=== PATIENT | female | born 1960 ===

== ENCOUNTER 2016-07-10 22:26 | Emergency (ER) | payer OTHER ==
[~2016-07-10] VITALS: Ht 162.6 cm; Wt 113.6 kg
[~2016-07-10 22:26] MED LIST: ALBU8.5H2 INHALATION; GING250C PO; LORA10CA PO; TURM500C7 PO
[2016-07-10 22:32] VITALS: BP 171/91; PULSE 99; RESP 19; O2SAT 94
[2016-07-11 00:58] VITALS: BP 129/82; PULSE 83; RESP 18; O2SAT 96
[2016-07-11 01:06] LABS: BASOPHILS % (AUTO) 0.3 % (0-3); EOSINOPHILS % (AUTO) 0.1 % (0-5); MONOCYTES % (AUTO) 4.8 % (4-12); Mean Corpuscular Hemoglobin 28.2 pg (27.0-35.0); Mean Corpuscular Volume 85.3 fL (81-100); NEUTROPHILS % (AUTO) 84.1 % (40-74); Platelet Count 245 bil/L (150-400)
[2016-07-11 01:32] LABS: Magnesium 2.2 mg/dL (1.6-2.6)
[2016-07-11] MEDS ORDERED: HYDROmorphone 0.5 mg/0.5 mL iSecure Syringe IVPUSH PRN (02:20)
[2016-07-11] MEDS ORDERED: Ondansetron 2 mg/mL 2 mL Inj IVPUSH PRN (02:20)
--- NOTE | 2016-07-11 02:23 | ED.REPORT ---
HPI-Abd Pain F 40 and Over Date of Service July 11, 2016 ED Provider: Oscar Jackson MD 56 y/o female with a hx of IBS, hyperlipidemia and asthma presents to the ED via EMS complaining of left lower quadrant pain, which radiates to her back, onset 3 hours ago. The pt reports that 4 weeks ago she had diarrhea and near syncope. 2 weeks later, she experienced similar sx including diarrhea, diaphoresis and lightheadedness. She went to [facility] and all the lab and imaging results were normal. The pt states that for the last three days there has been a change in her sx .She is constipated but managed to pass some "small, fuzzy and bloody stool" this morning. Pt also complains of night sweats , headache and nausea, which has been intermittent for the past month. Nursing Notes Stated Complaint: ABDOMINAL PAIN Chief Complaint: General Complaint Nursing Notes Reviewed: Yes Allergies: Coded Allergies: Contrast Media (Unverified Allergy, Mild, Rash,Itching,, 06/09/16) patient stated she was given benadryl at [facility] for prior imaging. verified with [facility] patient does have contrast allergy. She will need to be pre treated for cat scan TAPE (Verified Allergy, Mild, rash, 05/19/15) barium sulfate (Verified Allergy, Mild, FLUSHING, 06/13/16) Pt said she got barium prior to a CT scan and got facial flushing and diarrhea awhile after, ended up in the hospital in [place]. kld naproxen (Verified Adverse Reaction, Intermediate, pedal edema, 05/19/15) codeine (Verified Adverse Reaction, Mild, nausa, 05/19/15) Scheduled Milagro Root (Milagro) 250 Mg Capsule 250 MG PO prn Scheduled PRN Albuterol HFA (Proair HFA) 8.5 Gm Hfa.aer.ad 2 PUFFS INHALATION Q4H PRN PRN For Wheezing Loratadine (Claritin) 10 Mg Capsule 10 MG PO DAILY PRN PRN Allergies Turmeric Root Extract (Turmeric) 500 Mg Capsule 500 MG PO PRN AD General Time Seen by MD: 01:34 Chief Complaint Abdominal pain Hx Obtained From: Patient Arrived By: Ambulance Sudden in Onset?: No Onset Occurred: 3 days ago Symptom Duration: Intermittent Location: : LLQ Quality: Painful Radiation: : Back Severity: Current: Moderate Severity: Maximum: Moderate Recent Healthcare: Recent doctor visit Similar Sx Previous: Yes Past Medical History Past Medical History Sinusitis LE Edema Pyelonephritis Hyperlipidemia SEN Past Surgical History Reports: Hysterectomy Smoking History Former Smoker Social History Alcohol Use: Denies alcohol use Drug Use: Denies drug use Ambulatory Status Independent Review of Systems GI: Reports: Abdominal pain, Constipation, Hematochezia, Nausea, Vomiting Musculoskeletal: Reports: Back pain Complete sys rev & neg: except as marked. Skin: Reports Diaphoresis Neurologic: Reports: Headache, Lightheaded Physical Exam Vital Signs Vital Signs (First) Date Time Temp Pulse Resp B/P Pulse Ox O2 Delivery O2 Flow Rate FiO2 07/10/16 22:32 36.7 99 19 171/91 94 Room Air Initial VS: Reviewed, Vital signs abnormal Head / Eyes: Atraumatic, Normocephalic, PERRL ENT: Mucous membranes moist, Conjunctiva normal, No scleral icterus Neck: Supple, Non-tender, Full range of motion Extremities: Vascular intact, Neuro intact, No swelling, No tenderness Skin: Warm, Dry, No cyanosis Neurologic: Alert, Oriented, Nonfocal General/Constitutional: Awake, Alert, Cooperative, Not toxic appearing Mildly obese. Respiratory / Chest: Atraumatic, Breath sounds NL, Breath sounds = bilat, No respiratory distress, No rales, No rhonchi, No wheezing Cardiovascular: Heart rate NL, Regular rhythm, Heart sounds NL, No gallop, No murmurs, No rubs Abdomen: Atraumatic, Soft Bilateral lower quadrant tenderness, worse on the left side Back: Atraumatic, Full range of motion Interpretation & Diagnostics Lab Results Interpretation Result Diagram: 07/11/16 0055 07/11/16 0055 Test 07/11/16 00:55 07/11/16 01:03 White Blood Count 11.0th/mm3 (3.8-10.1) Red Blood Count 4.90mil/mm3 (3.90-5.20) Hemoglobin 13.8g/dL (12.0-15.6) Hematocrit 41.8% (35.0-46.0) Mean Corpuscular Volume 85.3fL (81-100) Mean Corpuscular Hemoglobin 28.2pg (27.0-35.0) Mean Corpuscular Hemoglobin Concent 33.0% (32.0-37.0) Red Cell Distribution Width 14.0% (12.3-15.4) Platelet Count 245bil/L (150-400) Neutrophils (%) (Auto) 84.1% (40-74) Lymphocytes (%) (Auto) 10.6% (14-46) Monocytes (%) (Auto) 4.8% (4-12) Eosinophils (%) (Auto) 0.1% (0-5) Basophils (%) (Auto) 0.3% (0-3) Sodium Level 140mEq/L (134-144) Potassium Level 4.2mEq/L (3.5-5.2) Chloride Level 102mEq/L (97-108) Carbon Dioxide Level 23mmol/L (18-29) Blood Urea Nitrogen 17mg/dL (6-24) Creatinine 0.83mg/dL (0.57-1.00) Estimat Glomerular Filtration Rate 102mL/min (>59) Glucose Level 127mg/dL (60-99) Calcium Level 8.8mg/dL (8.5-10.1) Magnesium Level 2.2mg/dL (1.6-2.6) Total Bilirubin 0.3mg/dL (0.0-1.2) Aspartate Amino Transf (AST/SGOT) 15U/L (0-50) Alanine Aminotransferase (ALT/SGPT) 17U/L (0-32) Alkaline Phosphatase 108U/L (25-150) Total Protein 7.3g/dL (6.4-8.4) Albumin 4.2g/dL (3.4-5.0) Lipase 52U/L (13-60) Hold Forrest Top Tube Received (Received) Hold Urine Received (Received) X-Ray Abdominal Interpretation Result: Normal. No evidence of small bowel obstruction. Study: 4 view Interpretation / Wet Read by: Wet read ED physician Re-Eval/Medical Decision Med Decision/Clinical Course 56-year-old female with chronic recurring abdominal pain. She is in the midst of GI evaluation and has an appointment scheduled soon. There is no evidence right now of serious or surgical disease. Source of Hx: Old records Re-Evaluation/Progress : Time of Eval: 05:08 Patient Status: Condition improved Re-Evaluation/Progress Note: Rechecked pt. Discussed lab and imaging results and diagnosis. Informed the pt of the plan to discharge. Pt understands and agrees with plan. F/U instructions and RTER warning given. All questions addressed. Counseled Regarding: Diagnosis, Lab results, Need for follow-up, When/why to return to ED Discharge & Departure Primary Impression: Abdominal pain Abdominal location: left lower quadrant Qualified Code: R10.32 - Left lower quadrant pain Disposition: Home Discharge Condition All VS Reviewed: Yes Patient Instructions: Acute Abdominal Pain (ED) Additional Instructions: Labs are normal. Acute abdominal x-rays are normal. The cause of your pain is uncertain but does not appear to be serious. Keep your scheduled appointment with your GI doctor. Return if you have recurrent severe pain. Referrals: Alysha Victoria PA-C (PCP) Scribe Attestation Portions of this note were transcribed by Papo Sanders. I, , personally performed the history, physical exam and medical decision-making;I reviewed and confirmed the accuracy of the information in the transcribed note. Signed by Savi Sharma. 07/11/16 0515 copies to: Alysha Victoria PA-C, Howard L MD July 11, 2016 02:23 Papo Sanders July 11, 2016 03:57
[2016-07-11 04:58] VITALS: BP 147/81; PULSE 84; RESP 16; O2SAT 99
[2016-07-11 05:22] VITALS: BP 147/81; PULSE 84; RESP 16; O2SAT 99
--- NOTE | 2016-07-11 09:12 | DRSVH ---
PROCEDURE: X-RAY ACUTE ABDOMINAL SERIES ([id number]) INDICATIONS: abd pain TECHNIQUE: One view chest and two views of the abdomen were acquired. COMPARISON: None. FINDINGS: Surgical changes and devices: Herniorrhaphy clips present in the lower abdomen and pelvis. Chest: Lungs are clear. Heart size is normal. No pleural effusions. No pneumoperitoneum. Abdomen: Bowel gas pattern is normal. No suspicious calcifications. Visualized solid organ contour s appear normal. Bones: No suspicious bony lesions. IMPRESSION: No acute process seen within the abdomen or chest. Dictated by: Holland MORA Interpreted: Elizabeth Espinoza MD on 07/11/2016 at 9:10 Transcribed by: TATA on 07/11/2016 at 9:11 Approved by: Elizabeth Espinoza M.D. on 07/11/2016 at 17:02
== END 2016-07-11 05:23 | disposition home or self-care (01) ==
LOC: EDUNIT# 22:26 → SED 22:26 → EDBD 22:26 → SED 07-11 05:23
DX: R10.32 Left lower quadrant pain (principal); E78.5 Hyperlipidemia, unspecified; Z90.710 Acquired absence of both cervix and uterus; Z87.891 Personal history of nicotine dependence; Z88.5 Allergy status to narcotic agent; Z88.6 Allergy status to analgesic agent; Z91.041 Radiographic dye allergy status

== ENCOUNTER 2016-08-19 21:12 | Emergency (ER) | payer OTHER ==
[~2016-08-19] VITALS: Ht 152.4 cm; Wt 108.6 kg
[2016-08-19 21:16] VITALS: BP 157/94; PULSE 104; RESP 20; O2SAT 97
--- NOTE | 2016-08-19 21:34 | ED.REPORT ---
HPI-Abd Pain F 40 and Over Date of Service Aug 19, 2016 ED Provider: Rudolph Guerra MD The patient is a 56 year old female with a medical history including pyelonephritis, hypertension, pre-diabetes, GERD, and a recently-diagnosed UTI who presents to the ED via EMS with LLQ abdominal pain onset a couple of days ago. Associated symptoms include left flank pain, urinary frequency, nausea, vomiting, dysuria, rhinorrhea, subjective fever, and vaginal bleeding. The patient denies other symptoms. EMS found the patient with a BP of 136 systolic, a pulse of 103, and otherwise normal vital signs. She began taking nitrofurantoin yesterday for the UTI, with no relief. The patient has had similar symptoms in the past. Nursing Notes Stated Complaint: ABDOMINAL PAIN Chief Complaint: Female Abdominal Pain Nursing Notes Reviewed: Yes Allergies: Coded Allergies: Contrast Media (Unverified Allergy, Mild, Rash,Itching,, 06/09/16) patient stated she was given benadryl at [facility] for prior imaging. verified with [facility] patient does have contrast allergy. She will need to be pre treated for cat scan TAPE (Verified Allergy, Mild, rash, 05/19/15) barium sulfate (Verified Allergy, Mild, FLUSHING, 06/13/16) Pt said she got barium prior to a CT scan and got facial flushing and diarrhea awhile after, ended up in the hospital in [place]. kld naproxen (Verified Adverse Reaction, Intermediate, pedal edema, 05/19/15) codeine (Verified Adverse Reaction, Mild, nausa, 05/19/15) Scheduled Cefuroxime Axetil (Cefuroxime) 500 Mg Tablet 500 MG PO BID Milagro Root (Milagro) 250 Mg Capsule 250 MG PO prn Scheduled PRN Albuterol HFA (Proair HFA) 8.5 Gm Hfa.aer.ad 2 PUFFS INHALATION Q4H PRN PRN For Wheezing Loratadine (Claritin) 10 Mg Capsule 10 MG PO DAILY PRN PRN Allergies Ondansetron ODT (Zofran ODT) 8 Mg Tablet 8 MG PO Q4H PRN PRN For Nausea Turmeric Root Extract (Turmeric) 500 Mg Capsule 500 MG PO PRN AD General Time Seen by MD: 21:33 Chief Complaint Abdominal pain Hx Obtained From: Patient Arrived By: Ambulance Sudden in Onset?: No Onset Occurred: 3 days ago ("A couple of days ago") Symptom Duration: Since onset Location: : Flank left: LLQ Quality: Painful Severity: Current: Moderate Severity: Maximum: Moderate Pertinent Negative: Relieved by nothing Context Related History: Reports: Abdominal surgery Recent Healthcare: No recent doctor visit Similar Sx Previous: Yes Past Medical History Past Medical History Sinusitis LE Edema Pyelonephritis Hyperlipidemia SEN Hypertension Hernia Rectal prolapse IBS Prediabetes GERD Past Surgical History Reports: Hysterectomy Smoking History Former Smoker Social History Alcohol Use: Denies alcohol use Drug Use: Denies drug use Ambulatory Status Independent Review of Systems Constitutional: Reports: Fever (Subjective) Respiratory: Denies: Non-productive cough, Shortness of breath GI: Reports: Abdominal pain (LLQ), Nausea, Vomiting Female: Reports: Dysuria, Flank pain (Left), Urinary frequency, Vaginal bleeding - abnl Complete sys rev & neg: except as marked. Allergy / Immune: Reports: Rhinorrhea Physical Exam Vital Signs Vital Signs (First) Date Time Temp Pulse Resp B/P Pulse Ox O2 Delivery O2 Flow Rate FiO2 08/19/16 21:16 36.4 104 20 157/94 97 Room Air Initial VS: Reviewed Head / Eyes: Atraumatic, Normocephalic ENT: Conjunctiva normal, No scleral icterus Neck: Supple, Full range of motion Extremities: No swelling, No tenderness Skin: Warm, Dry, No cyanosis Neurologic: Alert, Oriented, Nonfocal Psychiatric: Mood/affect normal, Behavior normal, Normal thought content General/Constitutional: Awake, Alert, No acute distress Appearance / Presentation: Positive: Uncomfortable Respiratory / Chest: Breath sounds NL, Breath sounds = bilat, No respiratory distress Cardiovascular: Heart rate NL, Regular rhythm, Heart sounds NL Abdomen: Soft, Non-tender, No distention Back: Full range of motion Flank / Spine / Paraspinal: Positive: Flank tender L Interpretation & Diagnostics URINE TEST: Negative URINE DIPSTICK: Bedside Urine Specific [place] * 1.005 Bedside Urine pH * 7 Bedside Urine Leukocyte Esterase * Negative Bedside Urine Nitrite * Negative Bedside Urine Protein * Negative Bedside Urine Glucose * Normal Bedside Urine Ketones * Negative Bedside Urine Urobilinogen * Normal Bedside Urine Bilirubin * Negative Bedside Urine Occult Blood * Negative Urine to Lab * Yes Lab Results Interpretation Result Diagram: 08/19/16214608/[id number]/[id number] Test 08/19/16 21:47 08/19/16 22:00 White Blood Count 9.7th/mm3 (3.8-10.1) Red Blood Count 4.98mil/mm3 (3.90-5.20) Hemoglobin 14.0g/dL (12.0-15.6) Hematocrit 42.4% (35.0-46.0) Mean Corpuscular Volume 85.1fL (81-100) Mean Corpuscular Hemoglobin 28.1pg (27.0-35.0) Mean Corpuscular Hemoglobin Concent 33.0% (32.0-37.0) Red Cell Distribution Width 13.5% (12.3-15.4) Platelet Count 224bil/L (150-400) Neutrophils (%) (Auto) 88.3% (40-74) Lymphocytes (%) (Auto) 5.1% (14-46) Monocytes (%) (Auto) 6.0% (4-12) Eosinophils (%) (Auto) 0.2% (0-5) Basophils (%) (Auto) 0.2% (0-3) Sodium Level 142mEq/L (134-144) Potassium Level 3.4mEq/L (3.5-5.2) Chloride Level 102mEq/L (97-108) Carbon Dioxide Level 23mmol/L (18-29) Blood Urea Nitrogen 8mg/dL (6-24) Creatinine 0.67mg/dL (0.57-1.00) Estimat Glomerular Filtration Rate 130mL/min (>59) Glucose Level 139mg/dL (60-99) Calcium Level 9.6mg/dL (8.5-10.1) Magnesium Level 1.9mg/dL (1.6-2.6) Total Bilirubin 0.3mg/dL (0.0-1.2) Aspartate Amino Transf (AST/SGOT) 22U/L (0-50) Alanine Aminotransferase (ALT/SGPT) 29U/L (0-32) Alkaline Phosphatase 114U/L (25-150) Total Protein 7.7g/dL (6.4-8.4) Albumin 4.1g/dL (3.4-5.0) Lipase 94U/L (13-60) Hold Forrest Top Tube Received (Received) Urine Color Yellow (YELLOW) Urine Appearance Clear (CLEAR,HAZY) Urine pH 6.5 (5.0-8.0) Urine Specific [place] 1.005 (1.003-1.035) Urine Protein Negativemg/dL (NEG,TRACE) Urine Glucose (UA) Negativemg/dL (NEGATIVE) Urine Ketones Negativemg/dL (NEGATIVE) Urine Occult Blood Negative (NEGATIVE) Urine Nitrite Negative (NEGATIVE) Urine Bilirubin Negative (NEGATIVE) Urine Urobilinogen Normalmg/dL (NORMAL) Urine Leukocyte Esterase Small (NEGATIVE) Urine RBC 0-2/hpf (0-2) Urine WBC 0-5/hpf (0-5) Urine Epithelial Cells Occasional/hpf (NONE-MOD) Urine Crystals None seen (NONE SEEN) Urine Bacteria None/hpf (NONE-FEW) Urine Hyaline Casts None/lpf (NONE) Urine Granular Casts None seen (NONE SEEN) Urine Waxy Casts None seen (NONE SEEN) Urine Red Blood Cell Casts None seen (NONE SEEN) Urine White Blood Cell Casts None seen (NONE SEEN) Urine Mucus None seen (None Seen) Urine Trichomonas None seen (NONE SEEN) Urine Yeast None (NONE SEEN) Urine Culture Reflexed Indicated CT Abd / Pelvis Interpretation CONCLUSION: 1. No evidence of pancreatitis. Bile ducts are slightly prominent but within normal limits status post cholecystectomy. 2. Normal appendix. No free air, bowel obstruction, or mesenteric inflammation. Report transmitted to the ED by radiologist Andrew Christopher M.D. at 08/19/2016 - 11:50:35 PM PDT Study type: Abdominal CT IV contrast Interpretation / Wet Read by: Interpret - Radiologist Re-Eval/Medical Decision Med Decision/Clinical Course 56-year-old presents with UTI symptoms and left flank pain concerning for pyelonephritis. She is been partially treated with nitrofurantoin. Urine is relatively benign in appearance. That finding prompted a CT, which did not show any other pathology. Will assume for the moment that she actually has low-grade pyelonephritis but a benign urine due to the presence of nitrofurantoin. Treated with Rocephin IV and Ceftin to follow. Ten pack of Vicodin given for her discomfort. Follow up with PCP. Source of Hx: Old records Re-Evaluation/Progress #1: Time of Eval: 23:18 Patient Status: Condition improved Re-Evaluation/Progress Note: Discussed with patient lab results and plan for CT scan. She agrees with plan for care and all questions were addressed. Re-Evaluation/Progress #2: Time of Eval: 01:25 Patient Status: Condition improved Re-Evaluation/Progress Note: Discussed with patient CT and lab results, diagnosis, and plan for discharge. Follow-up and return to the ER instructions given. Patient agrees with plan for care and all questions were addressed. Counseled Regarding: Diagnosis, Lab results, Need for follow-up, When/why to return to ED Discharge & Departure Primary Impression: Urinary tract infection Urinary tract infection type: acute cystitis Hematuria presence: without hematuria Qualified Code: N30.00 - Acute cystitis without hematuria Additional Impressions: Abdominal pain Abdominal location: left lower quadrant Qualified Code: R10.32 - Left lower quadrant pain Pyelonephritis Disposition: Home Discharge Condition All VS Reviewed: Yes Condition: Improved Patient Instructions: Urinary Tract Infection in Women (ED) Additional Instructions: Begin Ceftin twice daily. Discontinue the nitrofurantoin/Macrodantin. Drink plenty of clear fluids. Follow-up with your doctor in the office. Omeprazole daily. Your lipase was elevated today. It was only mildly so. This can be trended after 2-3 months to see if it is changing. 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 Sparing use of Vicodin if needed for pain Referrals: Alysha Victoria PA-C (PCP) Hollyibdenis Attestation Portions of this note were transcribed by Lore Kirk. I, Dr. Guerra, personally performed the history, physical exam, and medical decision-making; I reviewed and confirmed the accuracy of the information in the transcribed note. Signed by: Savi Gibson, 08/20/2016, 02:00 copies to: Alysha Victoria PA-C, Christopher W MD Aug 19, 2016 21:34 LORE KIRK Aug 19, 2016 21:48
[2016-08-19 21:52] LABS: BASOPHILS % (AUTO) 0.2 % (0-3); EOSINOPHILS % (AUTO) 0.2 % (0-5); Mean Corpuscular Hemoglobin 28.1 pg (27.0-35.0); Mean Corpuscular Volume 85.1 fL (81-100); NEUTROPHILS % (AUTO) 88.3 % (40-74); Platelet Count 224 bil/L (150-400)
[2016-08-19] MEDS ORDERED: 0.9% Sodium Chloride 1,000 ML IV ONE (21:58)
[2016-08-19] MEDS ORDERED: HYDROcodone-APAP 5-325 mg Tablet PO ONE (22:00)
[2016-08-19] MEDS ORDERED: Ondansetron 2 mg/mL 2 mL Inj IVPUSH ONE (22:00)
[2016-08-19] MEDS ORDERED: cefTRIAXone Inj 2,000 MG in Dextrose 5% Minibag Plus 50 ML IV ONE (22:00)
[2016-08-19 22:31] LABS: APPEARANCE,URINE CLEAR (CLEAR,HAZY); COLOR,URINE YELLOW (YELLOW); OCCULT BLOOD,URINE NEGATIVE (NEGATIVE); PH,URINE 6.5 (5.0-8.0); UROBILINOGEN,URINE NORMAL (NORMAL)
[2016-08-19 22:38] LABS: Magnesium 1.9 mg/dL (1.6-2.6)
[2016-08-19 22:55] VITALS: BP 127/54; PULSE 80; RESP 20
[2016-08-20 00:02] VITALS: BP 108/55; PULSE 77; RESP 18; O2SAT 95
[2016-08-20] MEDS ORDERED: _HYDROcodone/APAP 5-325 mg Tablet PO PRN (01:35)
[2016-08-20] MEDS ORDERED: _Ondansetron ODT 4 mg Tablet PO PRN (01:35)
[2016-08-20] MEDS ORDERED: CEFU500T61 PO (01:38)
[2016-08-20] MEDS ORDERED: ONDA8TAB7 PO (01:38)
[2016-08-20 01:58] VITALS: BP 121/72; PULSE 74; RESP 18; O2SAT 93
--- NOTE | 2016-08-20 09:43 | DRSVH ---
PROCEDURE: CT ABDOMEN AND PELVIS WITH CONTRAST ([id number]) INDICATIONS: back pain, elevated lipase TECHNIQUE: After the administration of intravenous contrast, 5 mm thick sections acquired from the diaphragm to the symphysis. 5 mm coronal and sagittal reformats were acquired. For radiation dose reduction, the following was used: automated exposure control, adjustment of mA and/or kV according to patient siz e. COMPARISON: None. FINDINGS: Image quality: Excellent. ABDOMEN: Lung bases: Lung bases are clear. Heart size is normal. Solid organs: Liver and spleen are normal in size and enhancement. Gallbladder previous cholecystec vivien. Biliary system is non dilated. Pancreas enhances normally. No adrenal nodules. Kidneys demo nstrate normal size and enhancement, without hydronephrosis. Peritoneum and bowel: Bowel loops demonstrate normal wall thickness and caliber. No free fluid or a ir. Normal appendix. Nodes and vessels: No retroperitoneal or mesenteric adenopathy by size criteria. Aorta and inferior vena cava are normal in size. Miscellaneous: No ventral hernias. Radiodense markers from anterior abdominal wall hernia repair . PELVIS: Genitourinary: Bladder wall thickness is normal. Prior hysterectomy. Miscellaneous: No inguinal hernias or adenopathy. Bones: No suspicious bony lesions. No vertebral body compression fractures. IMPRESSION: 1. Cause of pain is not identified. 2. Previous cholecystectomy. Biliary tree and pancreas are considered within normal limits and withou t inflammatory change. Dictated by: Mauro Koehler M.D. on 08/20/2016 at 9:37 this report corresponds to the findings of the preliminary NSR report. Approved by: Mauro Koehler M.D. on 08/20/2016 at 9:41
== END 2016-08-20 02:00 | disposition home or self-care (01) ==
LOC: SED 21:12
DX: N30.00 Acute cystitis without hematuria (principal); N12 Tubulo-interstitial nephritis, not specified as acute or chronic; I10 Essential (primary) hypertension; K21.9 Gastro-esophageal reflux disease without esophagitis; R73.03 Prediabetes; E78.5 Hyperlipidemia, unspecified; Z87.891 Personal history of nicotine dependence; Z88.5 Allergy status to narcotic agent; Z91.041 Radiographic dye allergy status; Z88.8 Allergy status to other drugs, medicaments and biological substances
CPT/HCPCS: 36415; 74177; 80053; 81000; 81025; 83690; 83735; 85025; 87086; 87088; 96361; 96374; 96375; 99285; J0696; J2405; J7030; Q9967

== ENCOUNTER 2016-09-02 21:01 | Emergency (ER) | payer OTHER ==
[~2016-09-02] VITALS: Ht 152.4 cm; Wt 106.8 kg
[~2016-09-02 21:01] MED LIST changes: +CEFU500T61 PO; +ONDA8TAB7 PO
[2016-09-02 21:03] VITALS: BP 152/83; PULSE 95; RESP 16; O2SAT 96
[2016-09-02 21:49] LABS: BASOPHILS % (AUTO) 0.2 % (0-3); EOSINOPHILS % (AUTO) 0.5 % (0-5); Mean Corpuscular Hemoglobin 28.1 pg (27.0-35.0); Mean Corpuscular Volume 84.8 fL (81-100); NEUTROPHILS % (AUTO) 82.7 % (40-74); Platelet Count 213 bil/L (150-400)
[2016-09-02 21:57] LABS: APPEARANCE,URINE CLEAR (CLEAR,HAZY); COLOR,URINE YELLOW (YELLOW); OCCULT BLOOD,URINE NEGATIVE (NEGATIVE); UROBILINOGEN,URINE NORMAL (NORMAL)
--- NOTE | 2016-09-02 22:11 | ED.REPORT ---
HPI-Abd Pain F 40 and Over Date of Service Sep 02, 2016 ED Provider: Jayden Sanchez MD Pt is a prediabetic 56 year old female with a history of hyperlipidemia, HTN, IBS, fatty liver disease, rectal bleeding, and UTI who presents to the ED via EMS complaining of intermittent cramping abdominal pain onset 3 months ago. She c/o associated diarrhea, back pain, hematochezia, bloody stool, headache, nausea , and tremors. Pt reports elevated blood pressure during each episode. Pt denies any other symptoms. Pt states that she had 2 episodes of diarrhea today and took anti-nausea medication with no relief, prompting her to call EMS. Pt reports that she has been seeing Dr. Navarro, her GI doctor, for the past 3 months regarding her symptoms, however presents today due to blood in stool x1 during a dirrheal episode today. Nursing Notes Stated Complaint: ABDOMINAL PAIN Chief Complaint: Female Abdominal Pain Nursing Notes Reviewed: Yes Allergies: Coded Allergies: Contrast Media (Unverified Allergy, Mild, Rash,Itching,, 06/09/16) patient stated she was given benadryl at [facility] for prior imaging. verified with [facility] patient does have contrast allergy. She will need to be pre treated for cat scan TAPE (Verified Allergy, Mild, rash, 05/19/15) barium sulfate (Verified Allergy, Mild, FLUSHING, 06/13/16) Pt said she got barium prior to a CT scan and got facial flushing and diarrhea awhile after, ended up in the hospital in [place]. kld naproxen (Verified Adverse Reaction, Intermediate, pedal edema, 05/19/15) codeine (Verified Adverse Reaction, Mild, nausa, 05/19/15) Scheduled Cefuroxime Axetil (Cefuroxime) 500 Mg Tablet 500 MG PO BID Milagro Root (Milagro) 250 Mg Capsule 250 MG PO prn Scheduled PRN Albuterol HFA (Proair HFA) 8.5 Gm Hfa.aer.ad 2 PUFFS INHALATION Q4H PRN PRN For Wheezing Loratadine (Claritin) 10 Mg Capsule 10 MG PO DAILY PRN PRN Allergies Ondansetron ODT (Zofran ODT) 8 Mg Tablet 8 MG PO Q4H PRN PRN For Nausea Turmeric Root Extract (Turmeric) 500 Mg Capsule 500 MG PO PRN AD General Time Seen by MD: 22:09 Chief Complaint Abdominal pain Hx Obtained From: EMS Arrived By: Ambulance Sudden in Onset?: Yes Onset Occurred: More than a week ago... (3 months) Symptom Duration: Intermittent Location: : Epigastric: LLQ Quality: Cramping, Painful Severity: Current: Moderate Severity: Maximum: Moderate Recent Healthcare: Recent doctor visit Similar Sx Previous: Yes Past Medical History Past Medical History Notes: PCP - Dr. Navarro at [facility] Past Medical History Sinusitis LE Edema Pyelonephritis Hyperlipidemia SEN Hypertension IBS Prediabetes GERD Sleep apnea Fatty liver disease Past Surgical History Rectal prolapse Cholecystectomy Incisional hernias Reports: Hysterectomy Smoking History Former Smoker Social History Alcohol Use: Denies alcohol use Drug Use: Denies drug use Other Social History: Good social support Ambulatory Status Independent Review of Systems Constitutional: Denies: Fever Respiratory: Denies: Non-productive cough GI: Reports: Abdominal pain, Bloody/tarry stool, Hematochezia, Nausea, Denies: Vomiting Musculoskeletal: Reports: Back pain Complete sys rev & neg: except as marked. Neurologic: Reports: Headache, Shaking Physical Exam Physical Exam Notes: morbidly obese NAD Vital Signs Vital Signs (First) Date Time Temp Pulse Resp B/P Pulse Ox O2 Delivery O2 Flow Rate FiO2 09/02/16 21:03 36.8 95 16 152/83 96 Room Air Initial VS: Reviewed Head / Eyes: Atraumatic, Normocephalic Neck: Full range of motion Extremities: Vascular intact, Neuro intact Skin: Warm, Dry Neurologic: Alert, Oriented, Nonfocal Psychiatric: Mood/affect normal, Behavior normal General/Constitutional: Awake, Alert, Cooperative, Not toxic appearing Respiratory / Chest: Atraumatic, Breath sounds NL, Breath sounds = bilat, No respiratory distress Cardiovascular: Heart rate NL, Regular rhythm, Heart sounds NL Abdomen: Atraumatic, Soft, No guarding, No rebound, BS normoactive Tenderness/Guarding/Rebound: Positive: Tender LLQ... (Moderate), Tender epigastric Back: Atraumatic, Full range of motion Interpretation & Diagnostics Lab Results Interpretation Result Diagram: 09/02/16213909/02/162139 Test 09/02/16 21:30 09/02/16 21:40 Urine Color Yellow (YELLOW) Urine Appearance Clear (CLEAR,HAZY) Urine pH 7.0 (5.0-8.0) Urine Specific [place] 1.010 (1.003-1.035) Urine Protein Negativemg/dL (NEG,TRACE) Urine Glucose (UA) Negativemg/dL (NEGATIVE) Urine Ketones Negativemg/dL (NEGATIVE) Urine Occult Blood Negative (NEGATIVE) Urine Nitrite Negative (NEGATIVE) Urine Bilirubin Negative (NEGATIVE) Urine Urobilinogen Normalmg/dL (NORMAL) Urine Leukocyte Esterase Trace (NEGATIVE) Urine RBC 0-2/hpf (0-2) Urine WBC 0-5/hpf (0-5) Urine Epithelial Cells Occasional/hpf (NONE-MOD) Urine Crystals None seen (NONE SEEN) Urine Bacteria None/hpf (NONE-FEW) Urine Hyaline Casts None/lpf (NONE) Urine Granular Casts None seen (NONE SEEN) Urine Waxy Casts None seen (NONE SEEN) Urine Red Blood Cell Casts None seen (NONE SEEN) Urine White Blood Cell Casts None seen (NONE SEEN) Urine Mucus None seen (None Seen) Urine Trichomonas None seen (NONE SEEN) Urine Yeast None (NONE SEEN) Urinalysis Comment None Urine Culture Reflexed Not indicated White Blood Count 11.2th/mm3 (3.8-10.1) Red Blood Count 4.94mil/mm3 (3.90-5.20) Hemoglobin 13.9g/dL (12.0-15.6) Hematocrit 41.9% (35.0-46.0) Mean Corpuscular Volume 84.8fL (81-100) Mean Corpuscular Hemoglobin 28.1pg (27.0-35.0) Mean Corpuscular Hemoglobin Concent 33.2% (32.0-37.0) Red Cell Distribution Width 13.9% (12.3-15.4) Platelet Count 213bil/L (150-400) Neutrophils (%) (Auto) 82.7% (40-74) Lymphocytes (%) (Auto) 9.4% (14-46) Monocytes (%) (Auto) 7.0% (4-12) Eosinophils (%) (Auto) 0.5% (0-5) Basophils (%) (Auto) 0.2% (0-3) Sodium Level 140mEq/L (134-144) Potassium Level 3.6mEq/L (3.5-5.2) Chloride Level 103mEq/L (97-108) Carbon Dioxide Level 21mmol/L (18-29) Blood Urea Nitrogen 7mg/dL (6-24) Creatinine 0.62mg/dL (0.57-1.00) Estimat Glomerular Filtration Rate 143mL/min (>59) Glucose Level 118mg/dL (60-99) Calcium Level 9.3mg/dL (8.5-10.1) Magnesium Level 2.0mg/dL (1.6-2.6) Total Bilirubin 0.3mg/dL (0.0-1.2) Aspartate Amino Transf (AST/SGOT) 22U/L (0-50) Alanine Aminotransferase (ALT/SGPT) 20U/L (0-32) Alkaline Phosphatase 96U/L (25-150) Total Protein 7.5g/dL (6.4-8.4) Albumin 3.8g/dL (3.4-5.0) Lipase 46U/L (13-60) Re-Eval/Medical Decision Med Decision/Clinical Course 56 year-old with IBS type symptoms of nausea, cramping and diarrhea. Has a diagnosis of IBS, has been having symptoms for weeks. Some blood in stool x1 with diarrhea today. Not anemeic, hemodynamically stable. Labs are reassuring. Feeling better with ondansetron and levsin. Source of Hx: Old records Re-Evaluation/Progress : Time of Eval: 23:30 )( Re-Eval Abdomen: Soft, Tenderness Patient Status: Condition improved Re-Evaluation/Progress Note: Pt rechecked. Informed pt of plan for discharge. Pt understands and agrees with plan for discharge. F/U instructions and RTER warnings given. All questions addressed. Counseled Regarding: Diagnosis, Lab results, Need for follow-up, When/why to return to ED Discharge & Departure Primary Impression: Abdominal pain Abdominal location: generalized Qualified Code: R10.84 - Generalized abdominal pain Disposition: Home Discharge Condition All VS Reviewed: Yes Condition: Stable Additional Instructions: Emergency department evaluation today included interview examination and labs as well as review of past records. There does not appear to be an acute medical problem causing symptoms of cramping diarrhea and nausea. Continue with hyoscyamine, this can be taken 3-4 times a day if needed, and he was ondansetron and follow-up with your GI doctor as planned. During the emergency department for fevers if passing large quantities of blood rectally or for uncontrolled vomiting or severe abdominal pain. Referrals: Alysha Victoria PA-C (PCP) Hollyibdenis Attestation Portions of this note were transcribed by Elham Vivar. I, Dr. Sanchez personally performed the history, physical exam and medical decision-making; I reviewed and confirmed the accuracy of the information in the transcribed note. Signed by : Savi Cordon, 09/03/16 and 00:50. copies to: Alysha Victoria PA-C, Donald L MD Sep 02, 2016 22:11 Elham Chavarria Sep 02, 2016 22:31
[2016-09-02 23:52] VITALS: BP 118/47; PULSE 74; O2SAT 94
== END 2016-09-02 23:53 | disposition home or self-care (01) ==
LOC: SED 21:01
DX: R10.84 Generalized abdominal pain (principal); E78.5 Hyperlipidemia, unspecified; I10 Essential (primary) hypertension; K76.0 Fatty (change of) liver, not elsewhere classified; E66.01 Morbid (severe) obesity due to excess calories; K21.9 Gastro-esophageal reflux disease without esophagitis; Z87.440 Personal history of urinary (tract) infections; Z87.19 Personal history of other diseases of the digestive system; Z87.891 Personal history of nicotine dependence; Z90.49 Acquired absence of other specified parts of digestive tract; Z87.09 Personal history of other diseases of the respiratory system; Z90.710 Acquired absence of both cervix and uterus; Z68.42 Body mass index [BMI] 45.0-49.9, adult; Z79.51 Long term (current) use of inhaled steroids; Z88.5 Allergy status to narcotic agent; Z88.8 Allergy status to other drugs, medicaments and biological substances

== ENCOUNTER 2016-09-18 20:56 | Day surgery (SDC) | payer OTHER ==
[~2016-09-18] VITALS: Ht 152.4 cm; Wt 106.8 kg
[2016-09-18 21:09] VITALS: BP 150/56; PULSE 99; O2SAT 100
--- NOTE | 2016-09-18 21:09 | ED.REPORT ---
HPI-General Illness Date of Service Sep 18, 2016 ED Provider: Rudolph Guerra MD The pt is a 56 y/o female w/ a hx of GERD, incisional hernias, and HTN presenting to the ED via EMS due to food impaction. She was eating a spicy sausage soup when it happened but she was still able to drink water. She is also experiencing rhinorrhea, slight constipation, a tingling sensation in her L leg and L side of her back, nausea, vomiting, pain w/ breathing and pain w/ coughing. Denies dysuria, fever, hemoptysis. The nausea has been affecting her for the last 4 or 5 months. The pt also describes having esophageal surgery where a "balloon" was placed in her esophagus and "inflated" roughly a week and a half ago. She was seen here in the ED for abdominal pain 16 days ago. Nursing Notes Stated Complaint: NAUSEA, VOMITING Chief Complaint: Esophageal obstruction Nursing Notes Reviewed: Yes Allergies: Coded Allergies: Contrast Media (Unverified Allergy, Mild, Rash,Itching,, 06/09/16) patient stated she was given benadryl at [facility] for prior imaging. verified with [facility] patient does have contrast allergy. She will need to be pre treated for cat scan TAPE (Verified Allergy, Mild, rash, 05/19/15) barium sulfate (Verified Allergy, Mild, FLUSHING, 06/13/16) Pt said she got barium prior to a CT scan and got facial flushing and diarrhea awhile after, ended up in the hospital in [place]. kld naproxen (Verified Adverse Reaction, Intermediate, pedal edema, 05/19/15) codeine (Verified Adverse Reaction, Mild, nausa, 05/19/15) Scheduled Cefuroxime Axetil (Cefuroxime) 500 Mg Tablet 500 MG PO BID Milagro Root (Milagro) 250 Mg Capsule 250 MG PO prn Scheduled PRN Albuterol HFA (Proair HFA) 8.5 Gm Hfa.aer.ad 2 PUFFS INHALATION Q4H PRN PRN For Wheezing Loratadine (Claritin) 10 Mg Capsule 10 MG PO DAILY PRN PRN Allergies Ondansetron ODT (Zofran ODT) 8 Mg Tablet 8 MG PO Q4H PRN PRN For Nausea Turmeric Root Extract (Turmeric) 500 Mg Capsule 500 MG PO PRN AD General Time Seen by MD: 21:04 Chief Complaint Other (food impaction) Hx Obtained From: Patient Arrived By: Ambulance Sudden in Onset?: Yes Onset Occurred: Just prior to arrival Symptom Duration: Since onset Recent Healthcare: No recent hospitalization, Recent doctor visit Past Medical History Past Medical History Notes: PCP - Dr. Navarro at [facility] Past Medical History Sinusitis LE Edema Pyelonephritis Hyperlipidemia SEN Hypertension IBS Prediabetes GERD Sleep apnea Fatty liver disease UTI Past Surgical History Rectal prolapse Cholecystectomy Incisional hernias Reports: Hysterectomy Smoking History Former Smoker Social History Alcohol Use: Denies alcohol use Drug Use: Denies drug use Other Social History: Good social support Ambulatory Status Independent Review of Systems Tingling in L leg and L side of back; Pain w/ breathing and pain w/ coughing; Denies hemoptysis; Full Review of Systems Constitutional: Denies: Fever GI: Reports: Constipation (mild ), Dysphagia, Nausea, Vomiting, Denies: Hematochezia Female: Denies: Dysuria Allergy / Immune: Reports: Rhinorrhea Complete sys rev & neg: except as marked. Physical Exam Vital Signs Vital Signs Date Time Temp Pulse Resp B/P Pulse Ox O2 Delivery O2 Flow Rate FiO2 09/18/16 22:53 98 24 120/69 98 Room Air 09/18/16 21:09 36.6 99 150/56 100 Room Air Initial VS: Reviewed Head / Eyes: Atraumatic, Normocephalic, PERRL Neck: Supple, Non-tender, Full range of motion Respiratory: Breath sounds normal, Clear to auscultation, No respiratory distress Extremities: Vascular intact, Neuro intact, No swelling, No tenderness Neurologic: Alert, Oriented, Nonfocal Psychiatric: Mood/affect normal, Behavior normal, Normal thought content General/Constitutional: Awake, Alert Appearance / Presentation: Positive: Obese Cardiovascular: Regular rhythm, Heart sounds NL Heart Rate / Rhythm: Positive: Tachycardia Abdomen: Atraumatic, Soft Tenderness/Guarding/Rebound: Positive: Tender epigastric Skin: Color NL, Warm, Dry Color / Condition: Positive: Diaphoresis present Interpretation & Diagnostics Lab Results Interpretation Result Diagram: 09/18/16 2200 09/18/16 2200 Test 09/18/16 22:00 09/18/16 22:47 White Blood Count 10.6th/mm3 (3.8-10.1) Red Blood Count 4.89mil/mm3 (3.90-5.20) Hemoglobin 13.9g/dL (12.0-15.6) Hematocrit 39.7% (35.0-46.0) Mean Corpuscular Volume 81.2fL (81-100) Mean Corpuscular Hemoglobin 28.4pg (27.0-35.0) Mean Corpuscular Hemoglobin Concent 35.0% (32.0-37.0) Red Cell Distribution Width 14.0% (12.3-15.4) Platelet Count 244bil/L (150-400) Neutrophils (%) (Auto) 82.3% (40-74) Lymphocytes (%) (Auto) 10.0% (14-46) Monocytes (%) (Auto) 6.8% (4-12) Eosinophils (%) (Auto) 0.5% (0-5) Basophils (%) (Auto) 0.2% (0-3) Prothrombin Time 10.1sec (8.1-12.5) Prothromb Time International Ratio 0.95ratio Sodium Level 139mEq/L (134-144) Potassium Level 3.4mEq/L (3.5-5.2) Chloride Level 100mEq/L (97-108) Carbon Dioxide Level 20mmol/L (18-29) Blood Urea Nitrogen 6mg/dL (6-24) Creatinine 0.79mg/dL (0.57-1.00) Estimat Glomerular Filtration Rate 108mL/min (>59) Glucose Level 133mg/dL (60-99) Calcium Level 9.4mg/dL (8.5-10.1) Magnesium Level 1.9mg/dL (1.6-2.6) Total Bilirubin 0.4mg/dL (0.0-1.2) Aspartate Amino Transf (AST/SGOT) 24U/L (0-50) Alanine Aminotransferase (ALT/SGPT) 23U/L (0-32) Alkaline Phosphatase 112U/L (25-150) Total Protein 7.7g/dL (6.4-8.4) Albumin 4.0g/dL (3.4-5.0) Lipase 46U/L (13-60) Urine Color Yellow (YELLOW) Urine Appearance Clear (CLEAR,HAZY) Urine pH 7.0 (5.0-8.0) Urine Specific [place] 1.005 (1.003-1.035) Urine Protein Negativemg/dL (NEG,TRACE) Urine Glucose (UA) Negativemg/dL (NEGATIVE) Urine Ketones Negativemg/dL (NEGATIVE) Urine Occult Blood Negative (NEGATIVE) Urine Nitrite Negative (NEGATIVE) Urine Bilirubin Negative (NEGATIVE) Urine Urobilinogen Normalmg/dL (NORMAL) Urine Leukocyte Esterase Trace (NEGATIVE) Urine RBC 0-2/hpf (0-2) Urine WBC 0-5/hpf (0-5) Urine Epithelial Cells Few/hpf (NONE-MOD) Urine Crystals None seen (NONE SEEN) Urine Bacteria Few/hpf (NONE-FEW) Urine Hyaline Casts None/lpf (NONE) Urine Granular Casts None seen (NONE SEEN) Urine Waxy Casts None seen (NONE SEEN) Urine Red Blood Cell Casts None seen (NONE SEEN) Urine White Blood Cell Casts None seen (NONE SEEN) Urine Mucus None seen (None Seen) Urine Trichomonas None seen (NONE SEEN) Urine Yeast None (NONE SEEN) Urinalysis Comment None Urine Culture Reflexed Indicated X-Ray Chest Interpretation Chest Xray Interpretation: Impression: No acute findings View: AP & lat Interpretation / Wet Read by: Wet read ED physician Re-Eval/Medical Decision Med Decision/Clinical Course 56-year-old with known esophageal web in status post balloon dilatation ten days ago, presents with an apparent food impaction. She stated initially she is able to drink water, but is unable report procession of the water to her stomach, and in fact is vomiting water op when she drinks anymore than a small sip at a time. Nitrates and glucagon were unrevealing, and endoscopic team was summoned and arrived promptly to take her to the operating room for upper endoscopy. Transported in stable condition. Source of Hx: Old records Time of Eval: 22:38 Re-Evaluation/Progress Note: Pt rechecked. She reports feeling like the water is stuck in her throat and not feeling a splashing sensation. Time of Eval: 23:00 Re-Evaluation/Progress Note: Pt went for endo w/ Dr. Knight Counseled Regarding: Diagnosis, Lab results, Need for admission Discharge & Departure Primary Impression: Food impaction of esophagus Encounter type: initial encounter Qualified Code: T18.128A - Food in esophagus causing other injury, initial encounter Disposition: ADMITTED TO HOSPITAL ([facility] w/ Dr. Knight ) Discharge Condition All VS Reviewed: Yes Condition: Stable Referrals: Alysha Victoria PA-C (PCP) Scribe Attestation Portions of this note were transcribed by Jarad Cuello. I, Dr. Guerra personally performed the history, physical exam and medical decision-making; I reviewed and confirmed the accuracy of the information in the transcribed note. Signed by : Savi John, 09/18/16 and [id number]. copies to: Alysha Victoria PA-C, Christopher W MD Sep 18, 2016 21:09 Jarad Cuello Sep 18, 2016 21:52
[2016-09-18] MEDS ORDERED: Ondansetron 2 mg/mL 2 mL Inj IVPUSH ONE (21:15)
[2016-09-18] MEDS ORDERED: Glucagon 1 mg/mL Inj IV ONE (21:45)
[2016-09-18 22:35] LABS: BASOPHILS % (AUTO) 0.2 % (0-3); EOSINOPHILS % (AUTO) 0.5 % (0-5); MONOCYTES % (AUTO) 6.8 % (4-12); Mean Corpuscular Hemoglobin 28.4 pg (27.0-35.0); Mean Corpuscular Volume 81.2 fL (81-100); NEUTROPHILS % (AUTO) 82.3 % (40-74); Platelet Count 244 bil/L (150-400)
[2016-09-18 22:39] LABS: INR 0.95 ratio
[2016-09-18 22:45] LABS: Magnesium 1.9 mg/dL (1.6-2.6)
[2016-09-18 22:53] VITALS: BP 120/69; PULSE 98; RESP 24; O2SAT 98
[2016-09-18 22:58] LABS: APPEARANCE,URINE CLEAR (CLEAR,HAZY); COLOR,URINE YELLOW (YELLOW)
[2016-09-18 22:59] LABS: OCCULT BLOOD,URINE NEGATIVE (NEGATIVE); UROBILINOGEN,URINE NORMAL (NORMAL)
[2016-09-18] MEDS ORDERED: Ondansetron 2 mg/mL 2 mL Inj ONE (23:15)
[2016-09-18] MEDS ORDERED: Succinylcholine Chloride 20 mg/mL 5 mL Inj ONE (23:15)
[2016-09-18] MEDS ORDERED: fentaNYL-PF 50 mCg/mL 2 mL Inj ONE (23:15)
[2016-09-18] MEDS ORDERED: Propofol 10,000 mCg/mL 20 mL Inj ONE (23:15)
[2016-09-18] MEDS ORDERED: Rocuronium 10 mg/mL 5 mL Inj ONE (23:15)
[2016-09-18] MEDS ORDERED: MetoCLOpramide 5 mg/mL 2 mL Inj ONE (23:15)
[2016-09-18 23:36] VITALS: BP 122/55; PULSE 107; RESP 22; O2SAT 98
[2016-09-18] MEDS ORDERED: Lactated Ringer's 1,000 ML IV SCH (23:37)
[2016-09-18] MEDS ORDERED: Lactated Ringer's 500 ML IV PRN (23:37)
--- NOTE | 2016-09-18 23:37 | PCM.HPANE ---
Patient Data Surgeon Admitting Provider: Attending Provider:Jesse Knight MD Primary Care Physician:Alysha Victoria PA-C Other Provider:[facility] [facility] Reason for Visit Nausea, Vomiting Ht/WT & BMI Height (Feet): 5 Weight (Kilograms): 106.82 Body Mass Index Allergies Coded Allergies: Contrast Media (Unverified Allergy, Mild, Rash,Itching,, 06/09/16) patient stated she was given benadryl at [facility] for prior imaging. verified with [facility] patient does have contrast allergy. She will need to be pre treated for cat scan TAPE (Verified Allergy, Mild, rash, 05/19/15) barium sulfate (Verified Allergy, Mild, FLUSHING, 06/13/16) Pt said she got barium prior to a CT scan and got facial flushing and diarrhea awhile after, ended up in the hospital in [place]. kld naproxen (Verified Adverse Reaction, Intermediate, pedal edema, 05/19/15) codeine (Verified Adverse Reaction, Mild, nausa, 05/19/15) Past Anesthesia History Anesthesia History: Denies:: Abnormal Airway, Anesthesia Reactions, Difficult Intubation, Fam Anesthesia Reaction, Fam Malignant Hypertherm, Malignant Hyperthermia Diabetes History Hx Diabetes?: Yes (prediabetic) MRSA MRSA: No Medications Hypertension Medication: Yes Home Meds Incl Beta [place]: No Active Scripts Ondansetron ODT (Zofran ODT)8 Mg Tablet8 Mg PO Q4H PRN For Nausea #14 TABLET Prov:Rudolph Guerra MD 08/20/16 Cefuroxime Axetil (Cefuroxime)500 Mg [id number] Mg PO BID #20 TABLET Prov:Rudolph Guerra MD 08/20/16 Reported Medications Milagro Root (Milagro)250 Mg [id number] Mg PO prn 05/19/15 Turmeric Root Extract (Turmeric)500 Mg [id number] Mg PO PRN AD 05/19/15 Loratadine (Claritin)10 Mg [id number] Mg PO DAILY PRN Allergies Ref 0 05/19/15 Albuterol HFA (Proair HFA)8.5 Gm Hfa.aer.ad2 Puffs INHALATION Q4H PRN For Wheezing #1 INHALER 05/19/15 History History of ENT Problems?: No HEENT History: Denies:: Abnormal Airway Cataracts Difficult Intubation Dysphagia Glaucoma Hearing Problem Sinus Problem TMJ Denture Type: None Teeth Condition: Within Normal Limits Hx of Heart Problems?: Yes Cardiovascular History: Positive for:: Hypertension Denies:: Congestive Heart Failure Hx of Respiratory Problem?: Yes Respiratory History: Positive for:: Asthma (mild, rare inhaler) Denies:: Tuberculosis Hx Neurologic Problems?: No Hx of GI Problems?: Yes Gastrointestinal History: Positive for:: Gastroesphageal Reflux (esophageal web with current food impaction) Hx of Problems?: No Hx Musculoskeletal Problems?: Yes Musculoskeletal History: Positive for:: Fibromyalgia Psycho Social History: Positive for:: Anxiety Hx Surgeries?: Yes (hernia repain) Hx Diabetes: Yes (prediabetic) Hx Alcohol Use: NoHx Substance Use: No Smoking Status: Former Smoker Have You Smoked inLast 12 mo: No Stop/Bang SEN Risk Assessment: High Risk, =/>3 Yes Risk Assessment Category Category 1A: Patient has history of documented sleep apnea, and HAS NOT received any narcotic, sedative or anesthesia administration during this stay. Category 1B: Patient has history of documented sleep apnea, and HAS received any narcotic , sedative or anesthesia administration during this stay Category 2: Patient has SUSPECTED Obstructive Sleep Apnea, and HAS received any narcotic , sedative or anesthesia administration during this stay. Category 3: Patient has SUSPECTED Obstructive Sleep Apnea and HAS NOT received narcotic, sedative or anesthesia administration during this stay. Category 4: Outpatient in Procedural Areas with known sleep apnea or who screen positive for High Risk via the STOP/BANG questionnaire. Exam Exam Vital Signs Vital Signs Date Time Temp Pulse Resp B/P Pulse Ox O2 Delivery O2 Flow Rate FiO2 09/18/16 22:53 98 24 120/69 98 Room Air 09/18/16 21:09 36.6 99 150/56 100 Room Air General Appearance: Alert, Oriented X3, Cooperative, No Acute Distress HEENT/AIRWAY: MP 2 Lungs: Clear to Auscultation, Normal Air Movement Heart: Exam Unremarkable, Regular Rate/Rhythm, No Murmurs/Rubs/Gallops Meds/Labs/Diagnostics Admission Meds Current Medications Ondansetron HCl (Zofran Inj) 8 mg ONCE ONCE IVPUSH Last administered on t 22:04; Start 09/18/16 at 21:15; Stop 09/18/16 at 21:16; Status DC Glucagon (Glucagen Inj) 1 mg ONCE ONCE IV Last administered on 09/18/16t 22:10 ; Start 09/18/16 at 21:45; Stop 09/18/16 at 21:46; Status DC Labs Test 09/18/16 22:00 09/18/16 22:47 White Blood Count 10.6th/mm3 (3.8-10.1) Red Blood Count 4.89mil/mm3 (3.90-5.20) Hemoglobin 13.9g/dL (12.0-15.6) Hematocrit 39.7% (35.0-46.0) Mean Corpuscular Volume 81.2fL (81-100) Mean Corpuscular Hemoglobin 28.4pg (27.0-35.0) Mean Corpuscular Hemoglobin Concent 35.0% (32.0-37.0) Red Cell Distribution Width 14.0% (12.3-15.4) Platelet Count 244bil/L (150-400) Neutrophils (%) (Auto) 82.3% (40-74) Lymphocytes (%) (Auto) 10.0% (14-46) Monocytes (%) (Auto) 6.8% (4-12) Eosinophils (%) (Auto) 0.5% (0-5) Basophils (%) (Auto) 0.2% (0-3) Prothrombin Time 10.1sec (8.1-12.5) Prothromb Time International Ratio 0.95ratio Sodium Level 139mEq/L (134-144) Potassium Level 3.4mEq/L (3.5-5.2) Chloride Level 100mEq/L (97-108) Carbon Dioxide Level 20mmol/L (18-29) Blood Urea Nitrogen 6mg/dL (6-24) Creatinine 0.79mg/dL (0.57-1.00) Estimat Glomerular Filtration Rate 108mL/min (>59) Glucose Level 133mg/dL (60-99) Calcium Level 9.4mg/dL (8.5-10.1) Magnesium Level 1.9mg/dL (1.6-2.6) Total Bilirubin 0.4mg/dL (0.0-1.2) Aspartate Amino Transf (AST/SGOT) 24U/L (0-50) Alanine Aminotransferase (ALT/SGPT) 23U/L (0-32) Alkaline Phosphatase 112U/L (25-150) Total Protein 7.7g/dL (6.4-8.4) Albumin 4.0g/dL (3.4-5.0) Lipase 46U/L (13-60) Urine Color Yellow (YELLOW) Urine Appearance Clear (CLEAR,HAZY) Urine pH 7.0 (5.0-8.0) Urine Specific [place] 1.005 (1.003-1.035) Urine Protein Negativemg/dL (NEG,TRACE) Urine Glucose (UA) Negativemg/dL (NEGATIVE) Urine Ketones Negativemg/dL (NEGATIVE) Urine Occult Blood Negative (NEGATIVE) Urine Nitrite Negative (NEGATIVE) Urine Bilirubin Negative (NEGATIVE) Urine Urobilinogen Normalmg/dL (NORMAL) Urine Leukocyte Esterase Trace (NEGATIVE) Urine RBC 0-2/hpf (0-2) Urine WBC 0-5/hpf (0-5) Urine Epithelial Cells Few/hpf (NONE-MOD) Urine Crystals None seen (NONE SEEN) Urine Bacteria Few/hpf (NONE-FEW) Urine Hyaline Casts None/lpf (NONE) Urine Granular Casts None seen (NONE SEEN) Urine Waxy Casts None seen (NONE SEEN) Urine Red Blood Cell Casts None seen (NONE SEEN) Urine White Blood Cell Casts None seen (NONE SEEN) Urine Mucus None seen (None Seen) Urine Trichomonas None seen (NONE SEEN) Urine Yeast None (NONE SEEN) Urinalysis Comment None Urine Culture Reflexed Indicated Plan Impression Patient chart reviewed, patient interviewed and anesthestic plan with risks, benefits, and alternatives discussed, and informed consent obtained. NPO per Anesth. Guidelines: Yes ASA Physical Status: ASA3 Severe Disease Anesthetic Plan: GA Bene/Risks/Altern/Consents: Yes HP Complete Prior to Induction: Yes Pawel Ocampo MD Sep 18, 2016 23:37
[2016-09-18] MEDS ORDERED: EPHEDrine Sulfate 50 mg/mL Inj IVPUSH PRN (23:40)
[2016-09-18] MEDS ORDERED: Labetalol 5 mg/mL 4 mL Inj IV PRN (23:40)
[2016-09-18] MEDS ORDERED: fentaNYL-PF 50 mCg/mL 2 mL Inj IVPUSH PRN (23:40)
[2016-09-18] MEDS ORDERED: HYDROmorphone 1 mg/mL Inj IVPUSH PRN (23:40)
[2016-09-18] MEDS ORDERED: Ondansetron 2 mg/mL 2 mL Inj IVPUSH PRN (23:40)
[2016-09-18] MEDS ORDERED: MetoCLOpramide 5 mg/mL 2 mL Inj IVPUSH PRN (23:40)
[2016-09-18] MEDS ORDERED: Phenylephrine 10,000 mCg/mL Inj IVPUSH PRN (23:40)
[2016-09-18] MEDS ORDERED: Atropine 0.4 mg/mL Inj IVPUSH PRN (23:40)
[2016-09-18 23:48] VITALS: BP 122/55; PULSE 107; RESP 22; O2SAT 98
--- NOTE | 2016-09-19 00:30 | PCM.ENDEGD ---
EGD Date of Service: Sep 19, 2016 Physician Jesse Knight MD Indication for Procedure Food impaction Post Procedure Dx & Findings: Successful food disimpaction Procedure Esophagogastroduodenoscopy PROCEDURE IN DETAIL: The patient was placed in left lateral decubitus position. Bite block was placed. Scope lubricated, placed in posterior pharynx, passed through the cricopharyngeus and esophagus, slowly advanced. As we advanced into his esophagus, patient did not have any fluid material throughout the esophagus. As soon as we entered the stomach, there was a column of long material in the stomach. Further distally, there is disorganized collection of food material. Approximately there was a very organized long column of food which the width was the size of the esophagus. But the esophagus itself was cleared. Stomach was decompressed and procedure was stopped due to risk of regurgitation and possible aspiration despite being intubated. Impression Food impaction resolved. It appears that she probably had a long column of fluid in the esophagus causing her symptoms. And when she was given anesthesia , the esophageal spasm resolved and the esophagus relaxed. Food afterwards probably slipped into the stomach. Recommendation For liquid diet for 3 days and soft diet. 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 Prilosec 20 mg once a day. Presedation Assessment Risks and Benefits Informed consent was obtained from the patient after all risks and benefits including but not limited to drug reaction, infection, pain, bleeding, perforation, as well as alternatives were discussed. Patient monitoring Continuous pulse oximetry, cardiac monitoring, blood pressure monitoring, IV access, and oxygen at 2L per nasal cannula. Complications There were no periprocedural complications identified. Post Procedure Plan Post Procedure Recommendations 1. Restrict activities today. 2. Resume normal activities in the morning. 3. Resume medications. 4. GERD behavioral modification: - Avoid fatty, acidic, spicy, large meals - Do not lie down after meals - Do not eat or drink anything for at least 2 1/2 hours before going to bed at night - Discontinue tobacco and alcohol - Decrease or avoid caffeine - Avoid chocolate and mints - Decrease weight - Avoid aspirin and non steroidal anti-inflammatory agents (NSAID) such as Aleve, Advil, Mobic, Naproxen, Ibuprofen, etc 5. Add proton pump inhibitor. Take 30 minutes before 1st meal of the day. 6. Patient informed of normal post procedure side effects as bloating, drowsiness, blood streaking in the stool 7. If gastric biopsy reveal H.pylori, continue with appropriate treatment 8. If small bowel biopsy reveals celiac, continue with appropriate treatment 9. Please don't hesitate to call me with any questions Jesse Knight MD Sep 19, 2016 00:30
--- NOTE | 2016-09-19 00:34 | PCM.ANEP1 ---
Post Anesthesia PACU Phase 1 Assessment Vital Signs VSS; see RN notes for post-procedure values. Vital Signs Date Time Temp Pulse Resp B/P Pulse Ox O2 Delivery O2 Flow Rate FiO2 09/18/16 23:48 36.6 107 22 122/55 98 Room Air 09/18/16 23:36 107 22 122/55 98 Room Air 09/18/16 22:53 98 24 120/69 98 Room Air 09/18/16 21:09 36.6 99 150/56 100 Room Air Anesthetic Administered: GA Level of Alertness: Awake, talking HEIN's with Equal Strength: Yes Pain: No Nausea or Vomiting: No CV Function & Hydration Stable: Yes Airway Device: Endotrachial Tube Oxygen Delivery: Simple Mask Lungs: Clear to Auscultation, Normal Air Movement PACU Phase 2 Assessment Complications: No Follow up Care: N/A (SEN protocol) Patient Instructions Provided: N/A Pawel Ocampo MD Sep 19, 2016 00:34
--- NOTE | 2016-09-19 02:40 | NUR ---
Activity/Discharge Pt arrived on unit at 0115 via stretcher with Quin DELGADO. Pt mom Gosia in room. Pt awake, no pain. Pt states throat feels scratchy. VS 116/75 BP, 89HR, 97% on RA, and 18 respirations. Pt did well with ice chips and water. Pt teaching done and pt signed discharge paperwork. IV Dc'd intact. Pt discharged via wheelchair to [facility] in ED.
--- NOTE | 2016-09-19 09:46 | DRSVH ---
PROCEDURE: X-RAY CHEST, TWO VIEWS ([id number]) INDICATIONS: upper abdo pain TECHNIQUE: 2 views of the chest were acquired. COMPARISON: 07/11/2016 FINDINGS: Surgical changes and devices: Surgical clips right upper quadrant. Lungs and pleura: No pleural effusions or pneumothorax. Lungs are clear. Mediastinum: Mediastinal contours are normal. Heart size is normal. Bones and chest wall: No suspicious bony abnormalities. Soft tissues appear unremarkable. IMPRESSION: No acute cardiopulmonary abnormality. Dictated by: Stuart Sahni M.D. on 09/19/2016 at 9:43 Approved by: Stuart Sahni M.D. on 09/19/2016 at 9:44
== END 2016-09-18 23:59 | disposition home or self-care (01) ==
LOC: EDBD 20:56 → SED 20:56 → EDUNIT# 20:56 → END 23:14
PROVIDERS: ATTEND Internal Medicine
DX: T18.128A Food in esophagus causing other injury, initial encounter (principal); K21.9 Gastro-esophageal reflux disease without esophagitis; I10 Essential (primary) hypertension; K59.00 Constipation, unspecified; E78.5 Hyperlipidemia, unspecified; G47.33 Obstructive sleep apnea (adult) (pediatric); K58.9 Irritable bowel syndrome, unspecified; R73.03 Prediabetes; K76.0 Fatty (change of) liver, not elsewhere classified; Z79.51 Long term (current) use of inhaled steroids
CPT/HCPCS: 36415; 43235; 71020; 80053; 81000; 83690; 83735; 85025; 85610; 87086; 87088; 93005; 96374; 96375; 99285; J0330; J1610; J2250; J2405; J2765; J3010

== ENCOUNTER 2016-10-08 18:23 | Emergency (ER) | payer OTHER ==
[~2016-10-08] VITALS: Ht 152.4 cm; Wt 105.5 kg
[2016-10-08 18:27] VITALS: BP 142/81; PULSE 102; RESP 20; O2SAT 95
--- NOTE | 2016-10-08 18:40 | ED.REPORT ---
HPI-General Illness Date of Service Oct 08, 2016 ED Provider: Jayden Sanchez MD Pt is 56 year old female with a history of IBS, HTN, GERD, and hyperlipidemia who presents to the ED complaining of throat pain onset this morning. She c/o associated nausea, abdominal pain (burning sensation), elevated blood pressure, chest pain, shaking, and tingling in her hands and arms bilaterally. The pt reports that it feels like she has food stuck in her throat, and that she has been having heart burn. Pt took Zofran at 17:00 today prior to her arrival. She has not tried drinking water since the onset of her symptoms. Nursing Notes Stated Complaint: FOOD STUCK Chief Complaint: Chest Pain-Non Cardiac Nature Nursing Notes Reviewed: Yes Allergies: Coded Allergies: Contrast Media (Unverified Allergy, Mild, Rash,Itching,, 10/08/16) patient stated she was given benadryl at [facility] for prior imaging. verified with [facility] patient does have contrast allergy. She will need to be pre treated for cat scan TAPE (Verified Allergy, Mild, rash, 10/08/16) barium sulfate (Verified Allergy, Mild, FLUSHING, 10/08/16) Pt said she got barium prior to a CT scan and got facial flushing and diarrhea awhile after, ended up in the hospital in [place]. kld naproxen (Verified Adverse Reaction, Intermediate, pedal edema, 10/08/16) codeine (Verified Adverse Reaction, Mild, nausa, 10/08/16) Scheduled Cefuroxime Axetil (Cefuroxime) 500 Mg Tablet 500 MG PO BID Milagro Root (Milagro) 250 Mg Capsule 250 MG PO prn Scheduled PRN Albuterol HFA (Proair HFA) 8.5 Gm Hfa.aer.ad 2 PUFFS INHALATION Q4H PRN PRN For Wheezing Loratadine (Claritin) 10 Mg Capsule 10 MG PO DAILY PRN PRN Allergies Ondansetron ODT (Zofran ODT) 8 Mg Tablet 8 MG PO Q4H PRN PRN For Nausea Turmeric Root Extract (Turmeric) 500 Mg Capsule 500 MG PO PRN AD General Time Seen by MD: 18:40 Chief Complaint Other (Throat pain) Hx Obtained From: Patient Arrived By: Walk-in Sudden in Onset?: No Onset Occurred: 5 - 8 hours ago Symptom Duration: Since onset Location: : Abdomen: Chest Quality: Burning Severity: Current: Moderate Severity: Maximum: Moderate Recent Healthcare: No recent doctor visit, No recent hospitalization Similar Sx Previous: Yes Past Medical History Past Medical History Notes: PCP - Dr. Navarro at [facility] Past Medical History Sinusitis LE Edema Pyelonephritis SEN IBS Prediabetes Sleep apnea Fatty liver disease UTI Reports: GERD, Hyperlipidemia, Hypertension Past Surgical History Rectal prolapse Cholecystectomy Incisional hernias Reports: Hysterectomy Smoking History Former Smoker Social History Alcohol Use: Denies alcohol use Drug Use: Denies drug use Other Social History: Good social support Ambulatory Status Independent Review of Systems Full Review of Systems Ears / Nose / Throat: Reports: Throat pain Respiratory: Denies: Non-productive cough, Shortness of breath Cardiovascular: Reports: Chest pain GI: Reports: Abdominal pain (Burning sensation), Nausea Neurologic: Reports: Shaking Physical Exam Vital Signs Vital Signs Date Time Temp Pulse Resp B/P Pulse Ox O2 Delivery O2 Flow Rate FiO2 10/08/16 22:02 36.7 96 16 133/57 92 Room Air 10/08/16 19:15 92 16 145/62 98 Room Air 10/08/16 18:27 36.6 102 20 142/81 95 Room Air Initial VS: Reviewed Head / Eyes: Atraumatic, Normocephalic Neck: Supple, Full range of motion Respiratory: Breath sounds normal, Clear to auscultation, No respiratory distress Cardiovascular: Regular rate & rhythm, Heart sounds normal, Intact distal pulses Extremities: Vascular intact, Neuro intact Skin: Warm, Dry, No cyanosis Neurologic: Alert, Oriented, Nonfocal Psychiatric: Mood/affect normal, Behavior normal General/Constitutional: Awake, Alert Abdomen: Soft, Non-tender, BS normoactive Interpretation & Diagnostics Lab Results Interpretation Test 10/08/16 18:40 10/08/16 19:00 Urine Color Yellow (YELLOW) Urine Appearance Clear (CLEAR,HAZY) Urine pH 8.0 (5.0-8.0) Urine Specific [place] 1.015 (1.003-1.035) Urine Protein Negativemg/dL (NEG,TRACE) Urine Glucose (UA) Negativemg/dL (NEGATIVE) Urine Ketones 15mg/dL (NEGATIVE) Urine Occult Blood Negative (NEGATIVE) Urine Nitrite Negative (NEGATIVE) Urine Bilirubin Negative (NEGATIVE) Urine Urobilinogen Normalmg/dL (NORMAL) Urine Leukocyte Esterase Negative (NEGATIVE) Urine RBC 0-2/hpf (0-2) Urine WBC 0-5/hpf (0-5) Urine Epithelial Cells Few/hpf (NONE-MOD) Urine Crystals None seen (NONE SEEN) Urine Bacteria None/hpf (NONE-FEW) Urine Hyaline Casts None/lpf (NONE) Urine Granular Casts None seen (NONE SEEN) Urine Waxy Casts None seen (NONE SEEN) Urine Red Blood Cell Casts None seen (NONE SEEN) Urine White Blood Cell Casts None seen (NONE SEEN) Urine Mucus None seen (None Seen) Urine Trichomonas None seen (NONE SEEN) Urine Yeast None (NONE SEEN) Urinalysis Comment None Urine Culture Reflexed Not indicated Hold Urine Received (Received) Troponin T < 0.010ug/L (0.0-0.011) ECG Interpretation ECG Interpretation: Sinus rhythm with a rate of 98. Low voltage, precordial leads. No acute changes. Time: 18:54 Interpreted by: ED physician Re-Eval/Medical Decision Med Decision/Clinical Course Swallowing liquids without difficulty. Still has some reflux. Note that she had eosp food impaction on last visit, tihs presentation seems less impressivie. Cilinically does not have esoph impaction Source of Hx: Old records Time of Eval: 20:32 Re-Evaluation/Progress Note: Pt rechecked. Pt reports that her abominal pain is now radiating to her lower abdomen. She states she takes Carafate 2x daily and Protonix at the same time 1 hour before she eats. Time of Eval: 21:29 Re-Evaluation/Progress Note: Pt rechecked. Informed pt of plan for discharge. Pt understands and agrees with plan for discharge. F/U instructions and RTER warnings given. All questions addressed. Counseled Regarding: Diagnosis, Lab results, Need for follow-up, When/why to return to ED Discharge & Departure Primary Impression: Epigastric abdominal pain Additional Impressions: Esophageal reflux Esophagitis presence: esophagitis presence not specified Qualified Code: K21.9 - Gastro-esophageal reflux disease without esophagitis Dysuria Disposition: Home Discharge Condition All VS Reviewed: Yes Condition: Stable Patient Instructions: Gastroesophageal Reflux Disease (ED) Additional Instructions: Emergency Department evaluation included interview, examination, ECG labs and urinalysis. There does not appear to be an esophageal obstruction at present. There is no evidence that chest pain experienced today related to heart. Continue with omeprazole and Carafate. Follow standard esophageal reflux precautions including small meals, limiting alcohol caffeine and chocolate intake and not eating within 2-1/2 hours going to bed. Follow-up with primary care next week. Return to emergency department if unable to swallow or having fevers or increasing abdominal pain. Referrals: Alysha Victoria PA-C (PCP) Scribe Attestation Portions of this note were transcribed by Elham Vivar. I, Dr. Sanchez personally performed the history, physical exam and medical decision-making; I reviewed and confirmed the accuracy of the information in the transcribed note. Signed by : Savi Cordon, 10/08/16. copies to: Alysha Victoria PA-C, Donald L MD Oct 08, 2016 18:40 Elham Chavarria Oct 08, 2016 18:49
[2016-10-08 19:15] VITALS: BP 145/62; PULSE 92; RESP 16; O2SAT 98
[2016-10-08 21:11] LABS: APPEARANCE,URINE CLEAR (CLEAR,HAZY); COLOR,URINE YELLOW (YELLOW); OCCULT BLOOD,URINE NEGATIVE (NEGATIVE); UROBILINOGEN,URINE NORMAL (NORMAL)
[2016-10-08 22:02] VITALS: BP 133/57; PULSE 96; RESP 16; O2SAT 92
== END 2016-10-08 22:12 | disposition home or self-care (01) ==
LOC: SED 18:23
DX: R10.13 Epigastric pain (principal); K21.9 Gastro-esophageal reflux disease without esophagitis; R30.0 Dysuria; I10 Essential (primary) hypertension; E78.5 Hyperlipidemia, unspecified; R73.03 Prediabetes; Z87.440 Personal history of urinary (tract) infections; Z90.49 Acquired absence of other specified parts of digestive tract; Z87.891 Personal history of nicotine dependence; Z88.5 Allergy status to narcotic agent; Z91.048 Other nonmedicinal substance allergy status; Z91.041 Radiographic dye allergy status